=== PATIENT | female | born 1985 | race Caucasian/White ===

== ENCOUNTER 2024-10-23 12:16 | Emergency (ER) | payer BC, MEDICAID ==
[~2024-10-23] VITALS: Ht 167.6 cm; Wt 96.2 kg
[2024-10-23 12:30] VITALS: BP 146/97; PULSE 96; RESP 18; TEMP 96.8; O2SAT 98
[2024-10-23 14:16] LABS: BASOPHILS % (AUTO) 0.9 % (0-1); EOSINOPHILS % (AUTO) 1.2 % (0-6); HEMATOCRIT 37.8 % (35.0-45.0); HEMOGLOBIN 12.9 g/dl (12.0-16.0); LYMPHOCYTES # (AUTO) 0.7 X10'3 (1.1-4.8); LYMPHOCYTES % (AUTO) 26.4 % (21-51); MEAN CORPUSCULAR HEMOGLOBIN 32.2 PG (27.0-31.0); MEAN CORPUSCULAR HGB CONC 34.1 g/dL (33.0-36.5); MEAN CORPUSCULAR VOLUME 94.5 FL (78-98); MEAN PLATELET VOLUME 8.9 FL (7.4-10.4); MONOCYTES # (AUTO) 0.3 X10'3 (0-0.9); MONOCYTES % (AUTO) 10.4 % (2-12); NEUTROPHILS # (AUTO) 1.6 X10'3 (1.8-7.7); NEUTROPHILS % (AUTO) 61.1 % (42-75); PLATELET COUNT 57 X10'3 (140-440); RED BLOOD COUNT 3.99 X10'6 (4.20-5.60); RED CELL DISTRIBUTION WIDTH 17.4 % (11.5-14.5); WHITE BLOOD COUNT 2.7 X10'3 (4.5-11.0)
[2024-10-23] MEDS: LORazepam 1 MG tablet PO ONE (14:16)
[2024-10-23 14:30] LABS: ALANINE AMINOTRANSFERASE 55 U/L (12-78); ALBUMIN 2.6 G/DL (3.4-5.0); ALBUMIN/GLOBULIN RATIO 0.5 (1.1-1.5); ALKALINE PHOSPHATASE 136 IU/L (46-116); ANION GAP 7 (8-16); ASPARTATE AMINO TRANSFERASE 73 U/L (10-37); BILIRUBIN,TOTAL 3.5 MG/DL (0.1-1.0); BLOOD UREA NITROGEN 7 MG/DL (7-18); BUN/CREATININE RATIO 9.1 (10.0-20.0); CALCIUM 8.7 MG/DL (8.5-10.1); CHLORIDE 108 MMOL/L (99-107); CREATININE 0.77 MG/DL (0.40-0.90); GLUCOSE 106 MG/DL (70-104); SODIUM 137 MMOL/L (135-145); TOTAL CARBON DIOXIDE 21.8 MMOL/L (24-32); eCRCL 92 ML/MIN; eGFR 83 ML/MIN
[2024-10-23 14:36] LABS: ETHANOL 71 MG/DL (<10); LIPASE 65 U/L (16-77)
[2024-10-23 14:37] LABS: ANISOCYTOSIS 1+; PLATELET ESTIMATE DECREASED; TOTAL CELLS COUNTED 100
[2024-10-23 14:42] LABS: BETA HCG,QUANTITATIVE < 1.0 mIU/ml; POTASSIUM 4.5 MMOL/L (3.5-5.1)
[2024-10-23] MEDS: normal saline 1000ml 1,000 ML IV ONE (14:56)
[2024-10-23] MEDS: thiamine 100mg/ml 2ml inj. IV ONE (15:07)
[2024-10-23] MEDS ORDERED: NALT50TA5 PO (17:29)
[2024-10-23] MEDS ORDERED: CHLO25CA10 PO (17:29)
== END 2024-10-23 17:43 | disposition home or self-care (01) ==
LOC: ER 12:16
DX: F10.239 Alcohol dependence with withdrawal, unspecified (principal); Z88.8 Allergy status to other drugs, medicaments and biological substances; Z98.51 Tubal ligation status; Y90.9 Presence of alcohol in blood, level not specified
CPT/HCPCS: 36415; 80053; 80320; 83690; 84702; 85007; 85025; 96361; 96374; 99283; J3411; J7030